=== PATIENT | male | born 1980 | race Caucasian/White ===

== ENCOUNTER 2020-09-11 16:37 | Emergency (ER) | payer BC ==
[2020-09-11 16:48] VITALS: BP 147/93; PULSE 103
--- NOTE | 2020-09-11 16:55 | EDM.PDOC ---
ED HPI GENERAL MEDICAL PROBLEM - General Chief Complaint: Upper Extremity Injury/Pain Stated Complaint: RT HAND INJURY Time Seen by Provider: 09/11/20 16:38 Source of Information: Reports: Patient History Limitations: Reports: No Limitations - History of Present Illness INITIAL COMMENTS - FREE TEXT/NARRATIVE: Patient is a 40-year-old male presenting to the emergency department with complaints of pain and swelling to his fourth and fifth MCP joint on his right hand. States that he was working on a ladder and fell off causing him to hit his hand on the wall. He has a small abrasion in between the fourth and fifth MCP joints. He has had fractures in his rt hand in the past but not in the area of his current discomfort. Right Hand Pain Score (Numeric/FACES): 2 - Related Data Allergies Allergy/AdvReac Type Severity Reaction Status Date / Time No Known Allergies Allergy Verified 09/11/20 16:50 Home Meds: Home Meds Albuterol [Ventolin HFA] 1 - 2 puff INH Q4HR PRN 09/11/20 [History] Budesonide/Formoterol [Symbicort 160-4.5 MCG] 1 puff INH DAILY 09/11/20 [Histor y] Montelukast [Singulair] 10 mg PO DAILY 09/11/20 [History] Past Medical History HEENT History: Reports: Impaired Vision Respiratory History: Reports: Asthma, Sleep Apnea Musculoskeletal History: Reports: Fracture - Past Surgical History Musculoskeletal Surgical History: Reports: Other (See Below) Other Musculoskeletal Surgeries/Procedures:: Arm Surgery Social & Family History - Tobacco Use Tobacco Use Status *Q: Never Tobacco User - Caffeine Use Caffeine Use: Reports: Coffee - Recreational Drug Use Recreational Drug Use: No Review of Systems - Review of Systems Review Of Systems: Comprehensive ROS is negative, except as noted in HPI. ED EXAM, GENERAL - Physical Exam Exam: See Below General Appearance: Alert, WD/WN, No Apparent Distress Respiratory/Chest: No Respiratory Distress, Lungs Clear, Normal Breath Sounds, No Accessory Muscle Use, Chest Non-Tender Cardiovascular: Normal Peripheral Pulses, Regular Rate, Rhythm, No Edema, No Gallop, No JVD, No Murmur, No Rub Extremities: Other (tenderness to palpation and mild swelling over the 4th and 5th MCP. Superfical abrasion between the joints on the volar aspect of the hand.) Neurological: Alert, Oriented, CN II-XII Intact, Normal Cognition, Normal Gait, Normal Reflexes, No Motor/Sensory Deficits Psychiatric: Normal Affect Skin Exam: Warm, Dry, Intact, Normal Color, No Rash Course - Vital Signs Last Recorded V/S: Last Vital Signs Temp 97.6 F 09/11/20 16:44 Pulse 103 H 09/11/20 16:44 Resp 16 09/11/20 16:44 BP 147/93 H 09/11/20 16:44 Pulse Ox 98 09/11/20 16:44 - Orders/Labs/Meds Orders: Active Orders 24 hr Category Date Time Status Hand Comp Min 3V Rt [CR] Stat Exams 09/11/20 16:49 Taken - Re-Assessments/Exams Free Text/Narrative Re-Assessment/Exam: 09/11/20 17:51 X-ray was negative for any acute fractures. We will discharge the patient home. Discharge instructions as documented. Departure - Departure Time of Disposition: 17:51 Disposition: Home, Self-Care 01 Condition: Good Clinical Impression: Hand contusion Qualifiers: Encounter type: initial encounter Laterality: right Qualified Code(s): S60.221A - Contusion of right hand, initial encounter - Discharge Information *PRESCRIPTION DRUG MONITORING PROGRAM REVIEWED*: No *COPY OF PRESCRIPTION DRUG MONITORING REPORT IN PATIENT NATALIA: No Instructions: Contusion Referrals: Harriett Herrera NP [Primary Care Provider] - Forms: ED Department Discharge Additional Instructions: You were seen in the emergency department today for pain and swelling to your right hand after hitting a wall. X-rays were completed and showed no fractures. Recommend that you apply ice intermittently over the area of discomfort. You may use [id number] Tylenol or ibuprofen as needed for pain. If you are still having significant pain after 1 week, recommend follow-up in the clinic. Return to ER as needed. Sepsis Event Note (ED) - Evaluation Sepsis Screening Result: No Definite Risk - Focused Exam Vital Signs: Vital Signs Temp Pulse Resp BP Pulse Ox 09/11/20 16:44 97.6 F 103 H 16 147/93 H 98 - My Orders Last 24 Hours: My Active Orders 09/11/20 16:49 Hand Comp Min 3V Rt [CR] Stat - Assessment/Plan Last 24 Hours: My Active Orders 09/11/20 16:49 Hand Comp Min 3V Rt [CR] Stat
--- NOTE | 2020-09-12 09:15 | CR ---
PROCEDURE INFORMATION: Exam: XR Right Hand Exam date and time: 09/11/2020 4:39 PM Age: 40 years old Clinical indication: Pain; Swelling; Hand; Right TECHNIQUE: Imaging protocol: XR Right hand. Views: 3 or more views. COMPARISON: No relevant prior studies available. FINDINGS: Bones/joints: Extremely minimal spurring right 5th DIP joint as well as 2nd and 3rd MCP joints. No fracture or bone erosions. Soft tissues: Tiny soft tissue calcification adjacent to the right 3rd middle phalanx. Suggestion of relatively diffuse soft tissue swelling of the hand. IMPRESSION: 1. Diffuse soft tissue swelling. 2. No fracture. Scattered tiny spurs. Thank you for allowing us to participate in the care of your patient. Dictated and Authenticated by: Adrian Black MD 09/11/2020 6:42 PM Central Time ([place] & [place]) [facility]
== END 2020-09-11 18:00 | disposition home or self-care (01) ==
LOC: JD.ED 16:37
DX: S60.221A Contusion of right hand, initial encounter (principal); J45.909 Unspecified asthma, uncomplicated; Z79.899 Other long term (current) drug therapy; W11.XXXA Fall on and from ladder, initial encounter
CPT/HCPCS: 73130-26-RT; 73130-RT; 99282; 99283